=== PATIENT | female | born 1990 | race Caucasian/White ===

== ENCOUNTER 2018-09-03 09:57 | Outpatient (CLI) | payer OTHER ==
[~2018-09-03] VITALS: Wt 2.3 kg
== END 2018-09-03 10:15 | disposition home or self-care (01) ==
LOC: OFIC 805 09:57
DX: R04.0 Epistaxis (principal); R09.81 Nasal congestion; J30.89 Other allergic rhinitis

== ENCOUNTER 2018-10-27 16:40 | Outpatient (CLI) | payer OTHER | END 2018-10-27 17:02 | disposition home or self-care (01) | LOC: NST 16:40 | DX: Z34.83 Encounter for supervision of other normal pregnancy, third trimester (principal) ==

== ENCOUNTER 2018-11-11 22:34 | Outpatient (CLI) | payer OTHER ==
[2018-11-11] MEDS ORDERED: SYNTHROID88 MCG PO (22:36)
[2018-11-11] MEDS ORDERED: PRENATAL TABLE1 EACH (22:36)
== END 2018-11-12 10:25 | disposition home or self-care (01) ==
LOC: OBS/DEL 22:34
DX: O60.03 Preterm labor without delivery, third trimester (principal); Z34.83 Encounter for supervision of other normal pregnancy, third trimester

== ENCOUNTER 2018-11-27 15:15 | Inpatient (IN) | payer OTHER ==
[~2018-11-27] VITALS: Ht 152.4 cm; Wt 73.9 kg
[~2018-11-27 15:15] MED LIST: PRENATAL TABLE1 EACH; SYNTHROID88 MCG PO
== END 2018-12-14 14:28 | disposition home or self-care (01) | DRG 807 ==
LOC: O/R 15:15 → SURG-SUITE 12-12 08:13 → LDR 12-12 08:13 → SURG-SUITE 12-12 20:03 → O/R 12-17 15:15
PROVIDERS: ADMIT Obstetrics & Gynecology
PROC: 10E0XZZ Delivery of Products of Conception, External Approach (ICD-10-PCS; principal; 2018-12-12)
PROC: 0W8NXZZ Division of Female Perineum, External Approach (ICD-10-PCS; 2018-12-12)
PROC: 3E0P7VZ Introduction of Hormone into Female Reproductive, Via Natural or Artificial Opening (ICD-10-PCS; 2018-12-12)
PROC: 3E033VJ Introduction of Other Hormone into Peripheral Vein, Percutaneous Approach (ICD-10-PCS; 2018-12-12)
PROC: 4A1HXCZ Monitoring of Products of Conception, Cardiac Rate, External Approach (ICD-10-PCS; 2018-12-12)
DX: O80 Encounter for full-term uncomplicated delivery (principal); Z37.0 Single live birth; Z3A.38 38 weeks gestation of pregnancy; Z22.330 Carrier of Group B streptococcus

== ENCOUNTER 2018-12-10 14:08 | Outpatient (CLI) | payer OTHER | END 2018-12-10 20:37 | disposition home or self-care (01) | LOC: NST 14:08 | DX: Z34.83 Encounter for supervision of other normal pregnancy, third trimester (principal) ==

== ENCOUNTER 2020-03-22 10:44 | Emergency (ER) | payer OTHER ==
[~2020-03-22] VITALS: Ht 152.4 cm; Wt 64.4 kg
[2020-03-22] MEDS ORDERED: PROGESTERO50 MG/1 M1 (11:05)
[2020-03-22] MEDS ORDERED: MINIVELLE1 EAC1 (11:05)
[2020-03-22] MEDS ORDERED: ENDOMETRIN100 MG (11:05)
== END 2020-03-22 15:50 | disposition home or self-care (01) ==
LOC: ER 10:44
DX: O20.0 Threatened abortion (principal)

== ENCOUNTER 2020-10-23 14:15 | Inpatient (IN) | payer OTHER ==
[~2020-10-23] VITALS: Ht 152.4 cm; Wt 68.9 kg
[~2020-10-23 14:15] MED LIST changes: +ENDOMETRIN100 MG; +MINIVELLE1 EAC1; +PROGESTERO50 MG/1 M1
[2020-11-05] MEDS ORDERED: FOLBIC TABLET1 EACH PO (22:19)
== END 2020-11-07 16:03 | disposition home or self-care (01) | DRG 768 ==
LOC: SURG-SUITE 11-05 17:21 → LDR 11-05 17:21 → SURG-SUITE 11-06 00:40 → SURH 11-14 14:15
PROVIDERS: ADMIT Obstetrics & Gynecology; ATTEND Obstetrics & Gynecology
PROC: 10E0XZZ Delivery of Products of Conception, External Approach (ICD-10-PCS; principal; 2020-11-05)
PROC: 0UQC7ZZ Repair Cervix, Via Natural or Artificial Opening (ICD-10-PCS; 2020-11-05)
PROC: 0KQM0ZZ Repair Perineum Muscle, Open Approach (ICD-10-PCS; 2020-11-05)
PROC: 10907ZC Drainage of Amniotic Fluid, Therapeutic from Products of Conception, Via Natural or Artificial Opening (ICD-10-PCS; 2020-11-05)
PROC: 3E033VJ Introduction of Other Hormone into Peripheral Vein, Percutaneous Approach (ICD-10-PCS; 2020-11-05)
PROC: 4A1HXFZ Monitoring of Products of Conception, Cardiac Rhythm, External Approach (ICD-10-PCS; 2020-11-05)
DX: O71.3 Obstetric laceration of cervix (principal); Z37.0 Single live birth; O70.1 Second degree perineal laceration during delivery; O77.0 Labor and delivery complicated by meconium in amniotic fluid; O73.0 Retained placenta without hemorrhage; O75.89 Other specified complications of labor and delivery; O99.824 Streptococcus B carrier state complicating childbirth; Z3A.38 38 weeks gestation of pregnancy; Z20.822 Contact with and (suspected) exposure to COVID-19

== ENCOUNTER 2023-02-14 12:55 | Emergency (ER) | payer OTHER ==
[~2023-02-14] VITALS: Ht 152.4 cm; Wt 63.5 kg
[~2023-02-14 12:55] MED LIST changes: +FOLBIC TABLET1 EACH PO
[2023-02-14 14:47] LABS: HEMATOCRIT 44.6 % (36.0-45.00); MEAN CELL VOLUME 90.1 fL (80.00-100.00); MEAN CORPUSCULAR HEMOGLOBIN 30.2 pg (27.00-32.0); MEAN CORPUSCULAR HGB CONC 33.6 g/dl (32.0-36.0); PLATELET COUNT 233 K/uL (150-450); RED BLOOD COUNT 4.96 M/uL (4.00-6.00); RED CELL DISTRIBUTION WIDTH 14.7 % (11.5-14.5)
[2023-02-14 15:10] LABS: ALBUMIN 4.2 gm/dL (3.4-5.0); BILIRUBIN TOTAL 0.49 mg/dL (0.3-1.2); CALCIUM 9.4 mg/dL (8.5-10.1); CREATININE SERUM 0.74 mg/dL (0.55-1.02); GFR 90.38; GLOBULINA 3.5 G/DL (2.4-3.5); POTASSIUM 4.12 mEq/L (3.5-5.1); TOTAL PROTEIN 7.7 gm/dL (6.4-8.2)
[2023-02-14] MEDS ORDERED: TRANSDERM-SCOP1 EACH TD (16:05)
== END 2023-02-14 16:16 | disposition home or self-care (01) ==
LOC: ER 12:55
PROVIDERS: General Practice
DX: H81.399 Other peripheral vertigo, unspecified ear (principal); Z88.8 Allergy status to other drugs, medicaments and biological substances